=== PATIENT | female | born 1975 ===

== ENCOUNTER 2021-01-28 15:19 | Outpatient (REF) | payer BC, SELFPAY ==
--- NOTE | 2021-01-28 13:45 | PAPFT_PTH ---
PATIENT: DANIEL MATTHEW LOC: [facility]#:[id number] AGE/SX: 45/F ROOM: RE01/28/[address]: Jeffery Olson : 1975 BED: DIS: 01/28/2021 SPEC #: [id number] RECD: 01/29/21 13:02 STATUS: ROSY REQ #: [id number] LIDA: 01/28/21 13:[address]: Jeffery Olson DEPT: [facility] Cytology RECD BY: Ingrid Beckford ENTERED: 01/29/21 13:02 SP TYPE: PAPFT OTHR DR: None Tissues: 1 - CX/ENDOCX FOR PAP SMEARS Procedures: PAP THIN PREP/[facility] Screening HPV DNA PROBE Comments: [id number]
== END 2021-01-28 15:20 | disposition home or self-care (01) ==
LOC: NCHCN 15:19
PROVIDERS: Visit Provider Family Medicine
DX: Z00.00 Encounter for general adult medical examination without abnormal findings (principal); Z12.4 Encounter for screening for malignant neoplasm of cervix; Z11.51 Encounter for screening for human papillomavirus (HPV)
CPT/HCPCS: 88142; 87624

== ENCOUNTER 2024-05-19 22:14 | Outpatient (REF) | payer BC, SELFPAY ==
[2024-05-19 15:01] LABS: HGB 12.9 g/dL (11.2-15.7); MCH 25.5 pg (27.0-33.0); MCHC 32.3 % (32.0-36.0); MCV 79 fL (80-95); MPV 10.2 fL (8.0-11.0); Platelet Count 230 10^3/uL (130-400); RBC 5.06 10^6/uL (3.93-5.22); RDW 13.1 % (11.7-14.6); RDW-SD 36.7 fL; WBC 6.69 10^3/uL (4.4-10.8)
[2024-05-19 15:40] LABS: Anion Gap 4.9 mmol/L (3-11); BUN 10 mg/dL (7-18); CO2 33.1 mmol/L (21.0-32.0); CREATININE 0.9 mg/dL (0.55-1.02); Calcium 9.2 mg/dL (8.5-10.1); Calculated LDL 81 mg/dL (<100); Chloride 106 mmol/L (98-107); Cholesterol 185 mg/dL (<200); Estimated GFR 79.85 (mL/min/1.73m2); Glucose 91 mg/dL (74-106); HDL Cholesterol 75 mg/dL (40-60); Potassium 4.7 mmol/L (3.5-5.1); Sodium 144 mmol/L (136-145); T4 5.9 ug/dL (4.7-13.3); TSH 1.73 uIU/Ml (0.36-3.74); Triglyceride 146 mg/dL (<150); Vitamin B12 205 pg/mL (193-986); Vitamin D 25 Total 22.7 ng/mL (30-100)
== END 2024-05-19 22:15 | disposition home or self-care (01) ==
LOC: NCHCN 22:14
PROVIDERS: Visit Provider Family Medicine
DX: L65.9 Nonscarring hair loss, unspecified (principal); Z00.00 Encounter for general adult medical examination without abnormal findings; Z86.2 Personal history of diseases of the blood and blood-forming organs and certain disorders involving the immune mechanism
CPT/HCPCS: 80048; 80061; 82306; 85027; 82607; 84436; 84443